=== PATIENT | female | born 1995 | race African-American/Black ===

== ENCOUNTER 2020-10-30 08:46 | Emergency (ER) | payer MEDICAID ==
[~2020-10-30] VITALS: Ht 157.5 cm; Wt 75.0 kg
[2020-10-30 08:52] VITALS: BP 123/86
[2020-10-30] MEDS ORDERED: SODIUM CHLORIDE 0.9% 1,000 ML IV ONE (09:15)
== END 2020-10-30 09:15 | disposition left against medical advice (07) ==
LOC: ER 08:46
DX: R10.9 Unspecified abdominal pain (principal); R51.9 Headache, unspecified
CPT/HCPCS: 93005; 99283; J7030

== ENCOUNTER 2022-04-22 08:05 | Emergency (ER) | payer MEDICAID ==
[~2022-04-22] VITALS: Ht 170.2 cm; Wt 79.5 kg
[2022-04-22 08:10] VITALS: BP 111/73
[2022-04-22 10:05] LABS: CLARITY URINE CLEAR (CLEAR); COLOR URINE YELLOW (YELLOW); KETONES URINE NEGATIVE (NEGATIVE); LEUKOCYTE ESTERASE URINE 2+ (NEGATIVE); NITRITE URINE NEGATIVE (NEGATIVE); OCCULT BLOOD URINE NEGATIVE (NEGATIVE); PH URINE 5.5 (4.5-8.0); PROTEIN URINE NEGATIVE (NEGATIVE); SPECIFIC GRAVITY URINE 1.028 (1.005-1.030)
[2022-04-22] MEDS ORDERED: CLOT21CR6 VG (10:28)
[2022-04-24 08:07] LABS: NEISSERIA GONORRHOEAE NAA Negative (Negative)
== END 2022-04-22 10:45 | disposition home or self-care (01) ==
LOC: ER 08:05
DX: B37.31 Acute candidiasis of vulva and vagina (principal)
CPT/HCPCS: 81003; 86592; 87210; 87491; 87591; 99283

== ENCOUNTER 2023-05-30 18:54 | Emergency (ER) | payer MEDICAID ==
[~2023-05-30] VITALS: Ht 170.2 cm; Wt 82.0 kg
[~2023-05-30 18:54] MED LIST: CLOT21CR6 VG
[2023-05-30 19:21] VITALS: TEMP 98.5; O2SAT 100
[2023-05-30] MEDS ORDERED: KETOROLAC 30MG/ML VIAL IM ONE (23:00)
[2023-05-30] MEDS ORDERED: LIDOCAINE 5% PATCH TOP SCH (23:00)
[2023-05-30] MEDS ORDERED: HYDROCODONE/ACETAMINOPHEN 5/325MG TABLET PO ONE (23:00)
[2023-05-31] MEDS ORDERED: CYCL5TAB MT (01:08)
[2023-05-31] MEDS ORDERED: TOPUD MT (01:08)
[2023-05-31] MEDS ORDERED: IBUP-2028 MT (01:08)
[2023-05-31] MEDS ORDERED: LIDO700A15 TP (01:08)
[2023-05-31 01:22] VITALS: BP 132/86; PULSE 79; RESP 18
== END 2023-05-31 01:25 | disposition home or self-care (01) ==
LOC: ER 18:54
DX: S16.1XXA Strain of muscle, fascia and tendon at neck level, initial encounter (principal); S09.90XA Unspecified injury of head, initial encounter; S20.219A Contusion of unspecified front wall of thorax, initial encounter; V49.49XA Driver injured in collision with other motor vehicles in traffic accident, initial encounter; Y93.89 Activity, other specified; Y92.89 Other specified places as the place of occurrence of the external cause; Y99.8 Other external cause status
CPT/HCPCS: 99285; 70450; 71045; 81025; 73590; 72125; 96372; J1885